=== PATIENT | female | born 1995 | race Caucasian/White ===

== ENCOUNTER 2025-02-27 12:17 | Emergency (ER) | payer MEDICAID, SELFPAY ==
--- OUTSIDE RECORDS SUMMARY | 2025-02-17 08:30 | XMS_ITS ---
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 Medications Medication SIG (Take, Route, Frequency, Duration) Notes Start Date End Date Status metFORMIN HCl ER (OSM) 500 MG 3 tablets Orally daily; Duration: 90 days 12/31/2023 Active Metoprolol Succinate ER 50 MG Oral; Duration: 60 Days Acti ve Doxycycline Hyclate 100 MG 1 capsule Ora lly twice a day; Duration: 10 days 10/02/2024 Active Social History Tobacco Use: Social History Observation Description Date Details (start date - stop date) Never Smoker NA - NA Tobacco Control (Standard) Question Answer Notes Tobacco use: Nonsmoker Encounters Encounter Location Date Provider Diagnosis [facility] [address] [place] [address] 02/17/2025 Isabel Wynn Plan Of Treatment No Information Progress Notes * Kat DAVIDSONineDOB:1994 (29 yo F)Acc No.[id number]:02/17/2025 Patient: Dora BANKS Provider: Viry Wynn MD :1995 A ge:29 Y S ex:Female Date:02/17/2025 Address:[address] [place] [address], [address], [address] [id number] Pcp:No PCP None Subjective: * Chief Complaints: * 1 . PCOS. 2. Concerns. 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 * Medical History: H ypertension, Kidney Infections, Bladder Infections, Pnuemonia. 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 B irth Control: N one. S exual Activity C urrently sexually active. S exually Tranmitted Disease (STD) N one. A bnormal Pap Smear N ever Had One. * OB History: G PAL: G 0. * Surgical History: K idney Stone Surgery , Tonsillectomy , [place] Teeth Removal , Laparoscopic Left Salpingectomy, Insertion of Mirena IUD 01/14/24. * Hospitalization/Major Diagno stic Procedure: D enies Past Hospitalization. * Family History: Hypertension: Mother Heart Disease: Maternal Grandmother. * Social History: T obacco Use: T obacco Control (Standard) T obacco use: N onsmoker D rugs/Alcohol: C affeine I ntake: 3 x weekly Do you smoke marijuana?: Denies. Do you drink alcohol?: No. M iscellaneous: E xercise: no. * Medications: T aking Metoprolol Succinate ER 50 MG Tablet Extended Release 24 Hour Oral , Taking Doxycycline Hyclate 100 MG Capsule 1 capsule Orally twice a day , Taking metFORMIN HCl ER (OSM) 500 MG Tablet Extended Release 24 Hour 3 tablets Orally daily , Medication List reviewed and reconciled with the patient * Allergies: N .K.D.A. Objective: * Vitals: Assessment: Plan: * Treatment: * Preventive Medicine: YOUR PREVENTIVE WELLNESS PLAN: B reast Cancer Screening (Mammogram): My last mammogram was done on: N ever C ervical Cancer Screening (Pap Smear): My last Pap smear was done on: P t. decline to specify O steoporosis Screening (Bone Density Measurement): My last bone density was done on: N ever C olorectal Cancer Screening: Last Done Colonoscopy N ever D epression Screening: Screening for depression was last done on: 0 12/31/2023 * Images: Billing Information: * Visit Code: * Procedure Codes: * Electronic signature of Letha Wynn MD on 02/27/2025 at 12:29 PM CDT Sign off status: Pending * Provider: Viry Wynn MD Date: 0 02/17/2025 Generated for Juan Francisco rojas/Celestina/Mandiitting on: 0 02/27/2025 12:29 PM CDT
[2025-02-27 12:25] VITALS: BP 160/118; PULSE 86; RESP 16; TEMP 36.3; O2SAT 98; BMI 36.6
--- NOTE | 2025-02-27 12:36 | ED_ITS ---
HPI - Abdominal Pain General Chief Complaint: Abdominal Pain <Vasquez Blanco MD - Last Filed: 02/27/25 12:38> Stated Complaint: abdominal pain, lower back pain <Vasquez Blanco MD - Last Filed: 02/27/25 12:38> Time Seen by Provider: 02/27/25 12:20 <Vasquez Blanco MD - Last Filed: 02/27/25 12:38> History of Present Illness HPI narrative: Patient is a 29-year-old woman who presents with right-sided abdominal pain progressing for the last several days. Pain is located lateral to the umbilicus with no radicular symptoms. Patient has had similar pain on the left and underwent removal of her left fallopian tube. She has also had history of kidney stones on the left and had stone extraction. Patient is known polycystic ovarian syndrome and does not believe that she is . She last had a. Fifty-six days ago. She has had no nausea no vomiting no change in her bowel or bladder no dysuria or hematuria. The pain is 6/10. <Vasquez Blanco MD - Last Filed: 02/27/25 12:38> Related Data Allergies/Adverse Reactions: Allergies Allergy/AdvReac Type Severity Reaction Status Date / Time No Known Drug Allergies Allergy Verified 02/27/25 12:32 <Vasquez Blanco MD - Last Filed: 02/27/25 12:38> Review of Systems Status of ROS Reports: 10 or more systems reviewed and unremarkable except as noted in History and below <Vasquez Blanco MD - Last Filed: 02/27/25 12:38> Exam Narrative: Exam Narrative: EXAM GENERAL: Patient appears comfortable and well. EYES: No scleral icterus. LYMPH: No supraclavicular or cervical lymphadenopathy. SKIN: Visible skin seen during exam normal or with benign process only. EXT: No dependent lower extremity pedal edema. HEART: Regular rate and rhythm with no murmurs, rubs, or gallops. LUNGS: Clear to auscultation bilaterally with no crackles or wheezes. ABD: Soft, non tender, non distended. PSYCH: Good eye contact, speech is not pressured. <Vasquez Blanco MD - Last Filed: 02/27/25 12:38> Const: Vital Signs, click to edit/add: Vital Signs - 24 hr 02/27/25 12:25 02/27/25 14:49 Temperature 97.4 F L Pulse Rate 69 Pulse Rate [Right Pulse Oximeter] 86 Respiratory Rate 16 16 Blood Pressure 154/95 H Blood Pressure [Ri ght Upper Arm] 160/118 H Pulse Oximetry 98 96 Oxygen Delivery Me thod Room Air Room Air <Vasquez Blanco MD - Last Filed: 02/27/25 12:38> Vital Signs, click to edit/add: Vital Signs - 24 hr 02/27/25 12:25 02/27/25 14:49 Temperature 97.4 F L Pulse Rate 69 Pulse Rate [Right Pulse Oximeter] 86 Respiratory Rate 16 16 Blood Pressure 154/95 H Blood Pressure [Ri ght Upper Arm] 160/118 H Pulse Oximetry 98 96 Oxygen Delivery Me thod Room Air Room Air <Teresita Chavez MD - Last Filed: 02/27/25 17:01> Course Course ED Course: Will begin workup with CBC comp panel lipase UA serum test. Once with serum test back proceed with CT abdomen and pelvis. <Vasquez Blanco MD - Last Filed: 02/27/25 12:38> Will begin workup with CBC comp panel lipase UA serum test. Once with serum test back proceed with CT abdomen and pelvis. I was asked to follow up with the results of the patient's CT scan. CT showed a large left-sided ovarian cyst, nothing on the right that would be causing her pain. Because of this we did proceed with a pelvic ultrasound which showed that same lesion on left, nothing on the right. Discussed results with patient. She does need to follow-up with OBGYN to discuss next steps as far as the left-sided ovarian lesion goes. CA 125 added to the patient's lab work. We also discussed the possibility of a kidney stone that is so small that we missed on the CT scan. If that is the case generally that should pass on its own. <Teresita Chavez MD - Last Filed: 02/27/25 17:01> Vital Signs Vital signs: Initial Vital Signs Temperature 97.4 F L 02/27/25 12:25 Temperature Source Temporal Artery Scan 02/27/25 12:25 Pulse Rate 86 02/27/25 12:25 Pulse Rhythm Regular 02/27/25 12:25 Pulse Strength 3+ Normal 02/27/25 12:25 Respiratory Rate 16 02/27/25 12:25 Blood Pressure 160/118 H 02/27/25 12:25 Blood Pressure Mean 132 H 02/27/25 12:25 Blood Pressure Position Sitting 02/27/25 12:25 Pulse Oximetry 98 02/27/25 12:25 Oxygen Delivery Method Room Air 02/27/25 12:25 Vital Signs Temperature 97.4 F L 02/27/25 12:25 Pulse Rate 86 02/27/25 12:25 Respiratory Rate 16 02/27/25 12:25 Blood Pressure 160/118 H 02/27/25 12:25 Pulse Oximetry 98 02/27/25 12:25 Oxygen Delivery Method Room Air 02/27/25 12:25 Temperature 97.4 F L 02/27/25 12:25 Pulse Rate 69 02/27/25 14:49 Respiratory Rate 16 02/27/25 14:49 Blood Pressure 154/95 H 02/27/25 14:49 Pulse Oximetry 96 02/27/25 14:49 Oxygen Delivery Method Room Air 02/27/25 14:49 <Vasquez Blanco MD - Last Filed: 02/27/25 12:38> Initial Vital Signs Temperature 97.4 F L 02/27/25 12:25 Temperature Source Temporal Artery Scan 02/27/25 12:25 Pulse Rate 86 02/27/25 12:25 Pulse Rhythm Regular 02/27/25 12:25 Pulse Strength 3+ Normal 02/27/25 12:25 Respiratory Rate 16 02/27/25 12:25 Blood Pressure 160/118 H 02/27/25 12:25 Blood Pressure Mean 132 H 02/27/25 12:25 Blood Pressure Position Sitting 02/27/25 12:25 Pulse Oximetry 98 02/27/25 12:25 Oxygen Delivery Method Room Air 02/27/25 12:25 Vital Signs Temperature 97.4 F L 02/27/25 12:25 Pulse Rate 86 02/27/25 12:25 Respiratory Rate 16 02/27/25 12:25 Blood Pressure 160/118 H 02/27/25 12:25 Pulse Oximetry 98 02/27/25 12:25 Oxygen Delivery Method Room Air 02/27/25 12:25 Temperature 97.4 F L 02/27/25 12:25 Pulse Rate 69 02/27/25 14:49 Respiratory Rate 16 02/27/25 14:49 Blood Pressure 154/95 H 02/27/25 14:49 Pulse Oximetry 96 02/27/25 14:49 Oxygen Delivery Method Room Air 02/27/25 14:49 <Teresita Chavez MD - Last Filed: 02/27/25 17:01> Medications Administered Medications: Discontinued Medications Generic Name Dose Route Start Last Admin Trade Name Freq PRN Reason Stop Dose Admin Sodium Chloride 500 mls @ 500 mls/hr 02/27/25 12:36 02/27/25 14:00 0.9 % Sodium Chloride 500 Ml IV 02/27/25 13:35 Infused .Q1H MACI Infusion Ketorolac Tromethamine 30 mg 02/27/25 12:35 02/27/25 13:00 Ketorolac 30 Mg/Ml Inj IVP 02/27/25 12:36 30 mg ONCE ONE Administration <Vasquez Blanco MD - Last Filed: 02/27/25 12:38> Discontinued Medications Generic Name Dose Route Start Last Admin Trade Name Freq PRN Reason Stop Dose Admin Sodium Chloride 500 mls @ 500 mls/hr 02/27/25 12:36 02/27/25 14:00 0.9 % Sodium Chloride 500 Ml IV 02/27/25 13:35 Infused .Q1H MACI Infusion Ketorolac Tromethamine 30 mg 02/27/25 12:35 02/27/25 13:00 Ketorolac 30 Mg/Ml Inj IVP 02/27/25 12:36 30 mg ONCE ONE Administration <Teresita Chavez MD - Last Filed: 02/27/25 17:01> MDM - Abdominal Pain MDM Narrative Medical decision making narrative: [age] year female with abdominal pain. Large left-sided ovarian mass. Follow-up with OBGYN. <Teresita Chavez MD - Last Filed: 02/27/25 17:01> Lab Data Labs: Lab Results 02/27/25 02/27/25 Range/Units 12:54 12:55 WBC 11.03 H (4.50-11.00) K/uL RBC 4.97 (4.00-5.20) m/uL Hgb 15.4 (12.0-16.0) gm/dL Hct 45.6 (33.0-51.0) % MCV 92 (80-100) fL MCH 31 (26-34) pg MCHC 34 (32-36) gm/dL RDW Coeff of Cherry 12.7 (11.5-15.5) % Plt Count 340 (140-440) K/uL Neut % (Auto) 70.7 (42.0-72.0) % Lymph % (Auto) 20.3 (20-44) % [place] % (Auto) 8.1 (0.0-11.0) % Eos % (Auto) 0.4 (0.0-7.0) % Baso % (Auto) 0.3 (0.0-3.0) % Neut # (Auto) 7.80 H (1.7-7.0) K/uL Lymph # (Auto) 2.20 (0.90-2.90) K/uL [place] # (Auto) 0.90 (0.00-0.90) K/UL Eos # (Auto) 0.00 (0.00-0.50) K/uL Baso # (Auto) 0.00 (0.00-0.30) K/uL Abs Immat Gran (auto) 0.00 (0.00-0.30) K/uL Imm/Tot Granulo (auto) 0.2 % Sodium 137 (135-149) mmol/L Potassium 3.9 (3.6-5.1) mmol/L Chloride 98 (96-114) mmol/L Carbon Dioxide 25 (20-32) mmol/L Anion Gap 14 (7-15) mEq/L BUN 13 (5-24) mg/dL Creatinine 0.8 (0.5-1.5) mg/dL Estimated Creat Clear 82.80 Estimated GFR 103 ml/min Glucose 97 (60-115) mg/dL Calcium 9.9 (8.4-10.6) mg/dL Total Bilirubin 0.9 (0.1-1.5) mg/dL AST 53 H (12-35) U/L ALT 53 H (4-35) U/L Alkaline Phosphatase 41 (40-150) U/L Total Protein 8.8 H (6.0-8.3) g/dL Albumin 4.9 (3.3-5.0) g/dL Lipase 76 (23-300) U/L HCG, Qual Negative (Negative) Urine Color Yellow (Yellow) Urine Appearance Clear (Clear) Urine pH 6.0 (5.0-8.5) Ur Specific [place] 1.020 (1.000-1.030) Urine Protein 2+ A (Negative) Urine Glucose (UA) Negative (Negative) Urine Ketones Negative (Negative) Urine Blood Trace-intact A (Negative) Urine Nitrite Negative (Negative) Urine Bilirubin 1+ A (Negative) Urine Urobilinogen 0.2 (0.2-1.0) Ur Leukocyte Esterase Negative (Negative) Urine RBC 0-2 (0-2) Urine WBC 0-2 (0-5) Ur Squamous Epith Cells Few (None-Few) Urine Bacteria Few A (None) Hyaline Casts Few (None-Few) <Vasquez Blanco MD - Last Filed: 02/27/25 12:38> Lab Results 02/27/25 02/27/25 Range/Units 12:54 12:55 WBC 11.03 H (4.50-11.00) K/uL RBC 4.97 (4.00-5.20) m/uL Hgb 15.4 (12.0-16.0) gm/dL Hct 45.6 (33.0-51.0) % MCV 92 (80-100) fL MCH 31 (26-34) pg MCHC 34 (32-36) gm/dL RDW Coeff of Cherry 12.7 (11.5-15.5) % Plt Count 340 (140-440) K/uL Neut % (Auto) 70.7 (42.0-72.0) % Lymph % (Auto) 20.3 (20-44) % [place] % (Auto) 8.1 (0.0-11.0) % Eos % (Auto) 0.4 (0.0-7.0) % Baso % (Auto) 0.3 (0.0-3.0) % Neut # (Auto) 7.80 H (1.7-7.0) K/uL Lymph # (Auto) 2.20 (0.90-2.90) K/uL [place] # (Auto) 0.90 (0.00-0.90) K/UL Eos # (Auto) 0.00 (0.00-0.50) K/uL Baso # (Auto) 0.00 (0.00-0.30) K/uL Abs Immat Gran (auto) 0.00 (0.00-0.30) K/uL Imm/Tot Granulo (auto) 0.2 % Sodium 137 (135-149) mmol/L Potassium 3.9 (3.6-5.1) mmol/L Chloride 98 (96-114) mmol/L Carbon Dioxide 25 (20-32) mmol/L Anion Gap 14 (7-15) mEq/L BUN 13 (5-24) mg/dL Creatinine 0.8 (0.5-1.5) mg/dL Estimated Creat Clear 82.80 Estimated GFR 103 ml/min Glucose 97 (60-115) mg/dL Calcium 9.9 (8.4-10.6) mg/dL Total Bilirubin 0.9 (0.1-1.5) mg/dL AST 53 H (12-35) U/L ALT 53 H (4-35) U/L Alkaline Phosphatase 41 (40-150) U/L Total Protein 8.8 H (6.0-8.3) g/dL Albumin 4.9 (3.3-5.0) g/dL Lipase 76 (23-300) U/L HCG, Qual Negative (Negative) Urine Color Yellow (Yellow) Urine Appearance Clear (Clear) Urine pH 6.0 (5.0-8.5) Ur Specific [place] 1.020 (1.000-1.030) Urine Protein 2+ A (Negative) Urine Glucose (UA) Negative (Negative) Urine Ketones Negative (Negative) Urine Blood Trace-intact A (Negative) Urine Nitrite Negative (Negative) Urine Bilirubin 1+ A (Negative) Urine Urobilinogen 0.2 (0.2-1.0) Ur Leukocyte Esterase Negative (Negative) Urine RBC 0-2 (0-2) Urine WBC 0-2 (0-5) Ur Squamous Epith Cells Few (None-Few) Urine Bacteria Few A (None) Hyaline Casts Few (None-Few) <Teresita Chavez MD - Last Filed: 02/27/25 17:01> Imaging Data CT scan - abdomen: Attestation: I have reviewed the pertinent imaging results. <Teresita Chavez MD - Last Filed: 02/27/25 17:01> Radiologist's impression: TECHNIQUE: CT abdomen and pelvis acquired with 98 cc Omnipaque 350 IV contrast. COMPARISON: None. FINDINGS: Visualized lung bases are clear. The liver is normal in size with likely mild steatosis. Gallbladder is partially distended. No CT evidence of acute cholecystitis. No biliary ductal dilatation. Spleen is unremarkable. The pancreas is unremarkable. Adrenal glands are normal. The kidneys are unremarkable without hydronephrosis or significant perinephric stranding. Urinary bladder is partially distended. Colon is nondilated. The appendix is nondilated and obscured by motion. No gross stranding or fluid to suggest acute appendicitis. There are borderline thickened loops of small bowel within left upper quadrant, likely due to under distention without significant inflammatory fat stranding to suggest enteritis (41). No evidence of a small bowel obstruction is seen. The stomach is partially distended. No free air. No ascites. No lymphadenopathy. 5.1 x 4.7 centimeter left ovarian cyst is noted. Aorta is not aneurysmal. Bone windows demonstrate no acute fracture. IMPRESSION: : 1. No gross CT finding to explain the patient`s right-sided abdominal pain. 2. A 5 centimeter left ovarian cyst. Follow-up pelvic ultrasound may be performed for further evaluation if this patient is having pelvic pain. <Teresita Chavez MD - Last Filed: 02/27/25 17:01> Ultrasound pelvis: Attestation: I have reviewed the pertinent imaging results. <Teresita Chavez MD - Last Filed: 02/27/25 17:01> Radiologist's impression: Technique: Ultrasound pelvis transabdominal and transvaginal for better assessment or to better visualize the endometrium. Real-time sonographic images with spectral and color Doppler imaging of the ovaries were obtained. Comparison: None. Findings: Uterus: Size: 7.3 x 3.2 x 4.6 cm. Mass: No. Endometrium: Transvaginal imaging was performed to better evaluate the endometrium. Thickness: 6 mm. Mass or fluid collection: No. Right ovary: Size: 3.1 x 3.0 x 2.3 cm. Mass: No. Blood flow: Normal arterial and venous blood flow. Left ovary: Size: 7.3 x 4.5 x 4.7 cm. Mass: A 5.2 x 4.7 x 5.1 centimeter anechoic lesion is noted with some thickened borders. There is no internal blood flow to the lesion. Blood flow: Normal arterial and venous blood flow. Cul-de-sac and adnexa: Significant free Fluid: No. Mass: No. Impression: 1. Mildly complex 5.2 centimeter left ovarian cyst. Documented blood flow to the left ovary. 2. Prominent right ovary without discrete lesion. Documented blood flow to the right ovary. <Teresita Chavez MD - Last Filed: 02/27/25 17:01> Discharge Plan Discharge Clinical Impression: Abdominal pain, Mass of left ovary <Vasquez Blanco MD - Last Filed: 02/27/25 12:38> Patient Disposition: Home, Self-Care <Vasquez Blanco MD - Last Filed: 02/27/25 12:38> Condition: Stable <Vasquez Blanco MD - Last Filed: 02/27/25 12:38> Additional Instructions: Nothing visualized explain right-sided abdominal pain. There is a rather large lesion on the left ovary. You do need to follow-up with OBGYN to discuss next steps regarding this lesion. Recommend you call them 1st thing Saturday morning to set up a follow-up ER appointment. <Vasquez Blanco MD - Last Filed: 02/27/25 12:38> Follow Up/Referrals: Nadiya Tobias PA [Primary Care Provider, Family Practice] <Vasquez Blanco MD - Last Filed: 02/27/25 12:38> Stand Al[facility]: [facility] <Vasquez Blanco MD - Last Filed: 02/27/25 12:38>
--- NOTE | 2025-02-27 12:38 | CRLHL7_ITS ---
For Patients: As a result of the Century Cures Act, medical imaging exams and procedure reports are released immediately into your electronic medical record. You may view this report before your referring provider. If you have questions, please contact your health care provider. INDICATION: Right-sided abdominal pain. TECHNIQUE: CT abdomen and pelvis acquired with 98 cc Omnipaque 350 IV contrast. COMPARISON: None. FINDINGS: Visualized lung bases are clear. The liver is normal in size with likely mild steatosis. Gallbladder is partially distended. No CT evidence of acute cholecystitis. No biliary ductal dilatation. Spleen is unremarkable. The pancreas is unremarkable. Adrenal glands are normal. The kidneys are unremarkable without hydronephrosis or significant perinephric stranding. Urinary bladder is partially distended. Colon is nondilated. The appendix is nondilated and obscured by motion. No gross stranding or fluid to suggest acute appendicitis. There are borderline thickened loops of small bowel within left upper quadrant, likely due to under distention without significant inflammatory fat stranding to suggest enteritis (41). No evidence of a small bowel obstruction is seen. The stomach is partially distended. No free air. No ascites. No lymphadenopathy. 5.1 x 4.7 centimeter left ovarian cyst is noted. Aorta is not aneurysmal. Bone windows demonstrate no acute fracture. IMPRESSION: : 1. No gross CT finding to explain the patient`s right-sided abdominal pain. 2. A 5 centimeter left ovarian cyst. Follow-up pelvic ultrasound may be performed for further evaluation if this patient is having pelvic pain. Please note that all CT scans at this facility use dose modulation, iterative reconstruction, and/or weight-based dosing when appropriate to reduce radiation dose to as low as reasonably achievable. Dictated by Juliocesar Schreiber MD @ 02/27/2025 2:28:17 PM (Electronically Signed)
[2025-02-27] MEDS: 0.9 % SODIUM CHLORIDE 500 ML 500 ML IV (13:00)
[2025-02-27 13:04] LABS: Appearance Urine Clear (Clear)
--- OUTSIDE RECORDS SUMMARY | 2025-02-27 13:05 | XMS_ITS | Patient Health Record ---
Author Organization [facility] Address [address] [place] [address] Care Team Providers Care Baby Attendant Name Role Phone Princess SOLER, Emily Primary Care Provider Daryn MORELAND STAIR BUILDER, RITA Unavailable Reason For Referral No Information Medications Medication SIG (Take, Route, Frequency, Duration) Notes Start Date End Date Status Sprintec 28 Active Social History Tobacco Use: Social History Observation Description Date Details (start date - stop date) Never Smoker NA - NA SMOKING STATUS 13Y AND OLDER Question Answer Notes Are you a: Non-Smoker Problems Problem Type SNOMED Code ICD Code Onset Dates Problem Status W/U Status Risk Notes Problem Kidney stone (26698915) Kidney stone (592.0) Active confirmed Plan Of Treatment No Information Insurance Providers Payer Name Payer Address Payer Phone Subscriber Number Group Number Insured Name Patient Relationship to Insured Coverage Start Date Coverage End Date [employer] [address] [address] [place] [address] [phone] [id number] Pati Mclean Child - Insured has Financial Responsibility 4 Medical (General) History Medical History History ICD Code Eyes: No Neurologic: No Endocrine: No Pulmonary: No Cardiac: No Gastrointestinal: No Genitourinary: No Infections: No UTIs Surgical History Surgery Date(Month/Year) Tonsillectomy
--- OUTSIDE RECORDS SUMMARY | 2025-02-27 13:05 | XMS_ITS | Patient Health Record ---
Author Organization [facility] Address [address] [place] [address] Care Team Providers Care School Office Assistant Name Role Phone None, No PCP Primary Care Provider Unavailabl e Phylicia Luna Unavailable [phone] Isabel Wynn Unavailable [phone] Allergies No Known Allergies Reason For Referral Reason [facility] 05/20 Diagnosis 1 Constipation (K59.00 ) Diagnosis 2 Diarrhea (R19.7) Referral Organization [facility] Referring Provider First Name Phylicia Referring Provider Last Name Eul Referring Provider Speciality Obstetrici an and public relations professional Referred Provider Specialty Gastroentero logy General Notes Phylicia Luna 024 10:06:00 AM CDT > Please refer to GI for constipation/diarrhea Clinical Notes Earnest Mcdermott 10:13:39 AM > Referral made and faxed to [facility] using [phone] for phone and [phone] Chase 05/19/2024 03:46:04 PM > [facility] sent letter to pt stating they aren't able to see pt at this time and referred her to a different place. Asking pt if she wants a new referral sent out CW CTCBaldemar Chase 05/20/2024 01:26:19 PM > Pt requested new referral to [facility], sent new referral over.Baldemar Chase 06/17/2024 09:50:54 AM > Report in pt docs CW CTC Referral Priority Routine Referral Appointment Date 06/09/2024 Reason Rayus Diagnosis 1 Abnormal pelvic ultr asound (R93.89) Referral Organization [facility] Referring Provider First Name Phylicia Referring Provider Last Name Eul Referring Provider Speciality Obstetrici an and public relations professional Referred Provider Specialty Radiology General Notes Phylicia Luna 025 02:55:23 PM CDT > Please order a pelvic MRI with and without contrast for pelvic pain, abnormal pelvic ultrasound, Earnest Mcdermott 10/02/2024 03:45:46 PM CDT > The Imaging order MRI : Pelvis has been placed. Clinical Notes Earnest Mcdermott 03:47:44 PM > Referral sent to Baldemar Juárez Chase 10/15/2024 03:00:24 PM > Referral received, pt scheduled CW CTC Referral Priority Routine Referral Appointment Date 10/19/2024 Medications Medication SIG (Take, Route, Frequency, Duration) [...] (Standard) Question Answer Notes Tobacco use: Nonsmoker Problems Problem Type SNOMED Code ICD Code Onset Dates Problem Status W/U Status Risk Notes Problem Constipation (69600174) Constipation (K59.00) Active confirmed Problem Polycystic ovary syndrome (disorder) (630140470) PCOS (polycystic ovarian syndrome) (E28.2) Active confirmed Problem Excessive and frequent menstruation (074855212) Menorrhagia with regular cycle (N92.0) Active confirmed Problem Ultrasound scan abnormal (finding) (712437900) Abnormal pelvic ultrasound (R93.89) Active confirmed Vital Signs Blood pressure diastolic 104 mm Hg 10/02/2024 Height 64 in 10/02/2024 Blood pressure systolic 150 mm Hg 10/02/2024 Weight 215 lbs 10/02/2024 BMI 36.9 kg/m2 10/02/2024 Encounters Encounter Location Date Provider Diagnosis [address] [address] 05/05/2024 Phylicia Cheryl Menorrhagia with reg ular cycle N92.0 and Left inguinal pain R10.[address] [address] 10/02/2024 Phylicia Euelizabeth Malpositioned IUD, initial encounter T83.32XA and Abnormal pelvic ultrasound R93.89 [facility] [address] [place] [address] 10/02/2024 Phylicia Eul Menorrhagia with reg ular cycle N92.0 and Pelvic pain R10.2 [facility] [address] [place] [address] [place] [id number] 10/30/2024 Phylicia Eul [facility] [address] [place] [address] 10/02/2024 Phylicia Eul Abnormal pelvic ultrasound R93.89 [facility] [address] [place] [address] [place] [id number] 10/02/2024 Phylicia Eul [facility] [address] [place] [address] 05/05/2024 Phylicia Eul [facility] [address] [place] [address] 11/10/2024 Phylicia Eul Assessments Encounter Date Diagnosis (ICD Code) Assessment Notes Treatment Notes Treatment Clinical Notes Section Notes 05/05/2024 Menorrhagia with regular cycle (ICD-10 - N92.0) Will trial a course of doxycycline to see if this helps improve her bleeding pattern 05/05/2024 Left inguinal pain (ICD-10 - R10.32) Suspect possible hernia vs other GI Etiology CT scan in hospital in January was unremarkable, pain does not raise suspicion for ADMISSIONS RECRUITER etiology Will refer to GI for further eval. Discussed they may refer her to general surgery 10/02/2024 Malpositioned IUD, initial encounter (ICD-10 - T83.32XA) IUD found to be in patient's cervix. Removed today with patient permission - discussed she will have cramping today and tomorrow, but the pain she was feeling should resolve within a week. Also suspect her menses will improve without the IUD 10/02/2024 Abnormal pelvic ultrasound (ICD-10 - R93.89) Cystic pelvic structure today on ultrasound of uncertain etiology Discussed expectant management with repeat ultrasound in 3 months vs MRI. She would like to do an MRI now. Also will treat with 10 days of doxycycline for possible right sided hydrosalpinx 10/02/2024 Abnormal pelvic ultrasound (ICD-10 - R93.89) 10/02/2024 Menorrhagia with regular cycle (ICD-10 - N92.0) 10/02/2024 Pelvic pain (ICD-10 - R10.2) Plan Of Treatment Pending Test Test Name Order Date MRI : Pelvis 10/02/2024 Insurance Providers Payer Name Payer Address Payer Phone Subscriber Number Group Number Insured Name Patient Relationship to Insured Coverage Start Date Coverage End Date [employer] 2021 KRISTEN (CLIENT bill) [address] [place], [place] [id number] Dora Mclean Self - patient is the insured Medical (General) History Medical History History ICD Code Hypertension Kidney Infections Bladder Infections Pnuemonia Surgical History Surgery Date(Month/Year) Kidney Stone Surgery Tonsillectomy [place] Teeth Removal Laparoscopic Left Salpingectomy, Inserti on of Mirena IUD 01/14/24
--- OUTSIDE RECORDS SUMMARY | 2025-02-27 13:05 | XMS_ITS | Clinical Summary ---
Author Organization [facility] Address [address] [place] [address] Care Team Providers Care Police Surgeon Name Role Phone Saad Marilyn GREGORIA Unavailable [phone] Nadiya Tobias Primary Care Provider Allergies Active Allergy Reactions Criticality Noted Date Comments Gluten GI Upset 05/30/2018 Medications psyllium (MetamuciL) 0.4 gram capsule Take 1 Capsule by mouth once daily. Active metFORMIN (GLUCOPHAGE XR) 500 mg Extended-Release tablet 01/07/2024 Active hydrOXYzine pamoate 25 mg capsuleIndicatio ns:Anxiety Take 1 Capsule (25 mg) by mouth every 6 hours if needed for Anxiety. 30 Capsule 11/09/2024 Active metoprolol succinate 50 mg sustained-releas e tabletIndication s:Dynamic left ventricular outflow obstruction Take 1 Tablet (50 mg) by mouth once daily. 90 Tablet 11/27/2024 Active Active Problems Problem Noted Date Diagnosed Date Right upper quadrant abdominal pain 04/25/2023 Hydronephrosis, left 05/01/2019 Gluten intolerance 03/24/2019 Nephrolithiasis 03/24/2019 Routine general medical exam ination at a health care facility 03/24/2019 Overview (03/24/2019): Pap: Mammo:no fam hx Colonoscopy: no fam hx Lipids:has been normal DM:no fam hx Dexa: Imm: Encounters Date Type Department Care Team Description 11/27/2024 Telephone [facility] [address] [place] [address] Marilyn Nash MBBS Refill Request from Last 3 Months Immunizations Immunization Administration Dates Next Due DTaP 08/29/2001 Human Papilloma Virus Vaccine 11/26/2014, 014 MENINGOCOCCAL VACCINE 2 VIAL [id number] (MENVEO) 1 MMR 08/29/2001 Family History Medical History Relation Name Comments Hypertension Mother Relation Name Status Comments Brother Alive Father Alive Mother Social History Tobacco Use Types Packs/Day Years Used Date Smoking Tobacco: Never Smokeless Tobacco: Never Tobacco Cessation:Counseling Given: No Alcohol Use Standard Drinks/Week Comments Not Currently 0 (1 standard drink = 0.6 oz pur e alcohol) Socially PHQ-2 Answer Date Recorded PHQ-2 TOTAL SCORE 0 11/06/2024 Social Connections Answer Date Recorded Do you often feel lonely or isolated from those around you? 0 04/20/2024 Financial Resource Strain Answer Date R ecorded Difficulty of Paying Living Expenses 3 04/20/2024 Difficulty of Paying Living Expenses Not on file 04/20/2024 Food Insecurity Answer Date Recorded Do you worry your food will run out before you are able to buy more? 1 04/20/2024 Transportation Needs Answer Date Record ed Does lack of transportation keep you from medica l appointments? 1 04/20/2024 Does lack of transportation keep you from work, meetings or getting things that you need? 1 04/20/2024 Housing Stability Answer Date Recorded What is your housing situation today? 1 04/20/2024 Utilities Answer Date Recorded Do you have trouble paying f or utilities (for example, heat, electricity, water, phone)? 1 04/20/2024 Comments No Sex and Gender Information Value Date Recorded Sex Assigned at Not on file Legal Sex Female 11:12 AM CDT Gender Identity Not on file Sexual Orientation Not on file Obstetrics History Last Filed Vital Signs Vital Sign Reading Time Taken Comments Blood Pressure 142/80 06/03/2024 8:32 AM [employer] Pulse 78 06/03/2024 8:11 AM [employer] Temperature 36.1 C (96.9 F) 01/08/2024 12:18 PM CDT Respiratory Rate 16 06/03/2024 8:11 AM [employer]SEMBLER Oxygen Saturation 99% 06/03/2024 8:11 AM [employer] AND [employer] ASSEMBLER Inhaled Oxygen Concentration - - Weight 97.5 kg (215 lb) 06/03/2024 8:11 AM [employer] ASSEMBLER Height 162.6 cm (5' 4) 06/03/2024 8:11 AM [employer] ASSEMBLER Body Mass Index 36.9 06/03/2024 8:11 AM [employer]SEMBLER Plan of Treatment Health Maintenance Due Date Last Done Comments Tetanus booster 2007 HIV for age 15-65 2011 Hepatitis C screening for ag e 18-79 2014 Hepatitis B series for 19+ ( 1 of 3 - 19+ 3-dose series) 2015 Pneumococcal series for age 6-49 (1 of 2 - PCV) 2015 Pap test for age 21-65 2017 COVID-19 vaccine series ( season) 2024 03/10/2021, 02/17/2021 Influenza Vaccine (#1) 2025 BMI (ht and wt on same day) for age 18+ 06/03/2025 06/03/2024, 04/19/2023, 02/05/2023, Additional history exists Depression screening for age 12+ 11/06/2025 11/06/2024, 10/26/2020, 03/25/2019, Additional history exists Insurance [id number] [place] [id number] [facility] Advance Directives * Full Code (Latest Code Status on File) Date Activated Date Inactivated Comments 04/25/2023 8:41 AM 04/25/2023 12:41 PM Question Answer Comments Code Status Discussion: Reviewed Preferences Care Teams Police Surgeon Relationship Specialty [place] [address] [place] [address] PCP - General Physician On Call 06/03/24 Marilyn Nash MBBS [address] [facility] [address] [place] [address] Cardiovascular Disease 05/19/24
--- OUTSIDE RECORDS SUMMARY | 2025-02-27 13:05 | XMS_ITS | Clinical Summary ---
Author Organization [facility] Address [address] [place] [address] Care Team Providers Care Survey Director Name Role Phone [facility], [facility] Primary Care Provide r Emily Singh MD Unavailable [phone] Allergies Active Allergy Reactions Criticality Noted Date Comments Gluten Meal GI Disturbance 05/30/2018 Medications metFORMIN (GLUCOPHAGE XR) 500 MG 24 hr tablet Take 500 mg by mouth daily For 2 weeks, then increase to 2 tablets daily for 2 weeks, then to 3 tablets daily 4 Active sennosides (SENOKOT) 8.6 MG tabletIndicatio ns:Acute post-operative pain Take 1-2 tablets by mouth daily as needed for constipation 30 tablet 4 Active polyethylene glycol (MIRALAX) 17 GM/Dose powderIndicatio ns:Acute post-operative pain Take 17 g (1 Capful) by mouth daily 510 g 4 Active acetaminophen (TYLENOL) 500 MG tabletIndicatio ns:Acute post-operative pain Take 2 tablets (1,000 mg) by mouth every 6 hours 60 tablet 4 Active ibuprofen (ADVIL/MOTRIN) 600 MG tabletIndicatio ns:Acute post-operative pain Take 1 tablet (600 mg) by mouth every 6 hours 60 tablet 4 Active hydrOXYzine HCl (ATARAX) 25 MG tabletIndicatio ns:Acute post-operative pain Take 1 tablet (25 mg) by mouth every 12 hours 10 tablet 4 Active simethicone (MYLICON) 80 MG chewable tabletIndicatio ns:Acute post-operative pain Take 1 tablet (80 mg) by mouth 4 times daily 20 tablet Active Active Problems Problem Noted Date Diagnosed Date Acute post-operative pain 01/24/2024 Pelvic pain in female 01/24/2024 Social History Tobacco Use Types Packs/Day Years Used Date Smoking Tobacco: Never Smokeless Tobacco: Never Tobacco Cessation:Counseling Given: Yes Alcohol Use Standard Drinks/Week Comments No 0 (1 standard drink = 0.6 oz pur e alcohol) PHQ-2 Answer Date Recorded PHQ-2 Score 0 07/28/2024 Adolescent Education Answer Date Record ed Getting School Help Needed Not on file 04/21 Comments No Sex and Gender Information Value Date Recorded Sex Assigned at Not on file Legal Sex Female 3:25 AM INTERIOR BLOCK WIRER Gender Identity Not on file Sexual Orientation Not on file Last Filed Vital Signs Vital Sign Reading Time Taken Comments Blood Pressure 168/106 07/28/2024 2:47 PM INTERIOR BLOCK WIRER Pulse 120 07/28/2024 2:47 PM INTERIOR BLOCK WIRER Temperature 37 C (98.6 F) 01/25/2024 3:22 PM CDT Respiratory Rate 16 07/28/2024 2:47 PM INTERIOR BLOCK WIRER Oxygen Saturation 96% 07/28/2024 2:47 PM INTERIOR BLOCK WIRER Inhaled Oxygen Concentration - - Weight 94.4 kg (208 lb 1.8 oz) 01/25/2024 12:16 AM CDT Height 162.6 cm (5' 4.02) 01/25/2024 12:16 AM C DT Body Mass Index 35.7 01/25/2024 12:16 AM CDT Plan of Treatment Health Maintenance Due Date Last Done Comments ADVANCE CARE PLANNING 1996 ANNUAL REVIEW OF HM ORDERS 1996 YEARLY PREVENTIVE VISIT 1999 HIV SCREENING 2011 HEPATITIS C SCREENING 2014 HPV VACCINE (3 - 3-dose series) 02/18/2015 11/26/2014, 04/20/2014 HEPATITIS B VACCINE (1 of 3 - 19+ 3-dose series) 2015 PAP 2017 DTAP/TDAP/TD VACCINE (2 - Tdap) 2021 08/29/2001 COVID-19 VACCINE ( - 2023-2 5 season) 2024 03/10/2021, 02/17/2021 INFLUENZA VACCINE (#1) 2025 ZOSTER VACCINE (1 of 2) 2046 MENINGITIS VACCINE Completed 04/20/2014 PHQ-2 (once per calendar year) Completed 07/28/2024 PNEUMOCOCCAL VACCINE: PEDIATRICS (0 to 5 YEARS) AND AT-RISK PATIENTS (6 to 49 YEARS) Aged Out No longer eligible b ased on patient's age to complete this topic Medical Devices Implanted Type Area Burlap Worker Device Identifier Shelf Expiration Date Model / Serial / Lot Iud Contraceptive Device Mirena [id number] - [id number] Implanted:Qty: 1 on 01/14/2024 by Phylicia Luna MD at [facility] Contraceptive Device N/A: Uterus ARIA [id number] 03/07/2026 [id number] Insurance [facility] Care Teams Survey Director Relationship Specialty Start Date End Date [facility], [facility] [id number] [place] [address] PCP - General 01/14/24 Emily Singh MD [facility] [address] [place], [place] [id number] Assigned Surgical Provider 08/30/24
[2025-02-27 13:07] LABS: Hematocrit 45.6 % (33.0-51.0); Hemoglobin* 15.4 gm/dL (12.0-16.0); Immature Granulocytes Pct Auto 0.2 %; Mean Corpuscular HGB Conc 34 gm/dL (32-36); Mean Corpuscular Hemoglobin 31 pg (26-34); Mean Corpuscular Volume 92 fL (80-100); RDW Coefficient of Variation % 12.7 % (11.5-15.5); Red Blood Count 4.97 m/uL (4.00-5.20); White Blood Count* 11.03 K/uL (4.50-11.00)
[2025-02-27 13:13] LABS: Immature Granulocytes Abs Auto 0.00 K/uL (0.00-0.30); Lymphocytes Absolute Auto 2.20 K/uL (0.90-2.90); Slide Review Reflex No
[2025-02-27 13:19] LABS: Albumin* 4.9 g/dL (3.3-5.0); Chloride* 98 mmol/L (96-114)
[2025-02-27 13:20] LABS: Potassium* 3.9 mmol/L (3.6-5.1); Sodium* 137 mmol/L (135-149)
[2025-02-27 13:22] LABS: Alanine Aminotransferase* 53 U/L (4-35); Alkaline Phosphatase* 41 U/L (40-150); Anion Gap 14 mEq/L (7-15); Aspartate Amino Transferase* 53 U/L (12-35); Bilirubin Total* 0.9 mg/dL (0.1-1.5); Blood Urea Nitrogen* 13 mg/dL (5-24); Carbon Dioxide* 25 mmol/L (20-32); Creatinine* 0.8 mg/dL (0.5-1.5); Est. Creatinine Clearance* 82.80; Estimated Glomerular Filt Rate 103 ml/min; Total Protein* 8.8 g/dL (6.0-8.3)
[2025-02-27 13:23] LABS: Calcium* 9.9 mg/dL (8.4-10.6); Glucose* 97 mg/dL (60-115)
[2025-02-27 13:41] LABS: HCG Qualitative Serum* Negative (Negative)
--- NOTE | 2025-02-27 14:42 | CRLHL7_ITS ---
For Patients: As a result of the Century Cures Act, medical imaging exams and procedure reports are released immediately into your electronic medical record. You may view this report before your referring provider. If you have questions, please contact your health care provider. Indication: Pelvic pain. Left ovarian cyst seen on CT Technique: Ultrasound pelvis transabdominal and transvaginal for better assessment or to better visualize the endometrium. Real-time sonographic images with spectral and color Doppler imaging of the ovaries were obtained. Comparison: None. Findings: Uterus: Size: 7.3 x 3.2 x 4.6 cm. Mass: No. Endometrium: Transvaginal imaging was performed to better evaluate the endometrium. Thickness: 6 mm. Mass or fluid collection: No. Right ovary: Size: 3.1 x 3.0 x 2.3 cm. Mass: No. Blood flow: Normal arterial and venous blood flow. Left ovary: Size: 7.3 x 4.5 x 4.7 cm. Mass: A 5.2 x 4.7 x 5.1 centimeter anechoic lesion is noted with some thickened borders. There is no internal blood flow to the lesion. Blood flow: Normal arterial and venous blood flow. Cul-de-sac and adnexa: Significant free Fluid: No. Mass: No. Impression: 1. Mildly complex 5.2 centimeter left ovarian cyst. Documented blood flow to the left ovary. 2. Prominent right ovary without discrete lesion. Documented blood flow to the right ovary. Dictated by Juliocesar Schreiber MD @ 02/27/2025 4:45:19 PM (Electronically Signed)
[2025-02-27 14:49] VITALS: BP 154/95; PULSE 69; RESP 16; O2SAT 96
[2025-02-27] MEDS: ACETAMINOPHEN 500 MG TABLET 1000 MG PO (16:46)
== END 2025-02-27 17:20 | disposition home or self-care (01) ==
PROVIDERS: Internal Medicine; Emergency Provider Family Medicine; PCP Physician Assistant
DX: N83.202 Unspecified ovarian cyst, left side (principal)
CPT/HCPCS: 36415; 74177; 76830; 76856; 80053; 81001; 81003; 83690; 84703; 85025; 86304; 87086; 93976; 96374; 99284; A9270; J1885; J7030; Q9967